=== PATIENT | male | born 1960 | race Caucasian/White ===

== ENCOUNTER 2023-03-03 12:14 | Inpatient (IN) | payer OTHER ==
[2023-03-03 12:47] VITALS: BMI 30.1
[2023-03-03] MEDS ORDERED: BISMUTH SUBSALICYLATE 262 MG/15 ML BTL PO PRN (14:03)
[2023-03-03] MEDS ORDERED: IBUPROFEN 600 MG TABLET (FP) PO PRN (14:03)
[2023-03-03] MEDS ORDERED: BENZOCAINE/MENTHOL (CHLORASEPTIC ) LOZENGE MM PRN (14:03)
[2023-03-03] MEDS ORDERED: hydrOXYzine PAMOATE 25 MG CAPSULE (FP) PO PRN (14:03)
[2023-03-03] MEDS ORDERED: NALOXONE HCL 0.4 MG/ML VIAL IM PRN (14:03)
[2023-03-03] MEDS ORDERED: BENZONATATE 200 MG CAPSULE PO PRN (14:03)
[2023-03-03] MEDS ORDERED: DICYCLOMINE HCL 10 MG CAPSULE PO PRN (14:03)
[2023-03-03] MEDS ORDERED: POLYETHYLENE GLYCOL (HEALTHYLAX) 3350 17 GM PACKET PO PRN (14:03)
[2023-03-03] MEDS ORDERED: IBUPROFEN 400 MG TABLET (FP) PO PRN (14:03)
[2023-03-03] MEDS ORDERED: MAGNESIUM HYDROX 2400MG/30ML ORAL SUSPENSION 30 ML CUP PO PRN (14:03)
[2023-03-03] MEDS ORDERED: guaiFENesin 600 MG TABLET.ER (FP) PO PRN (14:03)
[2023-03-03] MEDS ORDERED: ACETAMINOPHEN 325 MG TABLET (FP) PO PRN (14:03)
[2023-03-03] MEDS ORDERED: ONDANSETRON *ODT* 4 MG TABLET SL PRN (14:03)
[2023-03-03] MEDS ORDERED: LOPERAMIDE HCL 2 MG CAPSULE PO PRN (14:03)
[2023-03-03] MEDS ORDERED: NALOXONE HCL (KLOXXADO) 8 MG SPRAY NS PRN (14:03)
[2023-03-03] MEDS ORDERED: MAG HYDROX/AL HYDROX/SIMETH 30 ML UNIT-DOSE CUP PO PRN (14:03)
[2023-03-03] MEDS ORDERED: NICOTINE POLACRILEX 4 MG GUM BUC PRN (14:03)
[2023-03-03] MEDS: PRENATAL VITAMINS W/ FOLIC ACID TABLET (FP) PO SCH (14:32)
[2023-03-03] MEDS: THIAMINE HCL 100 MG TABLET (FP) PO SCH (22:28)
[2023-03-03] MEDS: MELATONIN 5 MG TABLETS PO SCH (22:29)
[2023-03-04] MEDS: PRENATAL VITAMINS W/ FOLIC ACID TABLET (FP) PO SCH (10:14)
[2023-03-04 12:17] LABS: HEMATOCRIT 35.9 % (35.4-49); HEMOGLOBIN 12.1 GM/dL (11.7-16.9); MCH 29.2 pg (25.7-33.7); MCHC 33.8 g/dl (32.0-35.9); MEAN CELL VOLUME 86.6 fl (80-96); MEAN PLT VOLUME 8.5 fl (7.5-11.1); PLATELET COUNT 172 10^3/uL (134-434); RBC 4.15 M/mm3 (4.00-5.60); RDW 15.1 % (11.9-15.9); WHITE BLOOD COUNT 3.3 K/mm3 (4.0-10.0)
[2023-03-04 12:27] LABS: POTASSIUM 3.9 mmol/L (3.5-5.1)
[2023-03-04 12:34] LABS: ALBUMIN 3.9 g/dl (3.4-5.0)
[2023-03-04 12:35] LABS: BLOOD UREA NITROGEN 25.1 mg/dL (7-18)
[2023-03-04 12:36] LABS: CREATININE 1.5 mg/dL (0.55-1.3)
[2023-03-04 12:37] LABS: CALCIUM 8.9 mg/dL (8.5-10.1)
[2023-03-04 12:38] LABS: BILIRUBIN,TOTAL 0.2 mg/dL (0.2-1); TOT PROT 7.7 g/dl (6.4-8.2)
[2023-03-04] MEDS: MELATONIN 5 MG TABLETS PO SCH (22:27)
[2023-03-04] MEDS: METHOCARBAMOL 500 MG TABLET PO PRN (22:27)
[2023-03-04] MEDS: THIAMINE HCL 100 MG TABLET (FP) PO SCH (22:27)
[2023-03-05 09:31] VITALS: BP 151/90; PULSE 65; RESP 16; TEMP 96.9
[2023-03-05] MEDS: PRENATAL VITAMINS W/ FOLIC ACID TABLET (FP) PO SCH (09:55)
[2023-03-05] MEDS: METHOCARBAMOL 500 MG TABLET PO PRN (09:55)
[2023-03-05] MEDS ORDERED: LISINOPRIL 10 MG TABLET PO SCH (10:00)
[2023-03-05] MEDS ORDERED: LACTULOSE 20 GM/30 ML UDC (FOR ORAL USE ONLY) PO SCH (10:00)
== END 2023-03-05 10:46 | disposition home or self-care (01) | DRG 774 ==
LOC: YASAS 12:14 → UNDOADMIN 14:36 → Y6N 14:36 → UNDODISIN 03-05 10:46
PROVIDERS: ADMIT Allergy & Immunology; ATTEND Surgery
PROC: HZ2ZZZZ Detoxification Services for Substance Abuse Treatment (ICD-10-PCS; principal; 2023-03-03)
DX: F10.230 Alcohol dependence with withdrawal, uncomplicated (principal); F14.20 Cocaine dependence, uncomplicated; F17.210 Nicotine dependence, cigarettes, uncomplicated; F41.8 Other specified anxiety disorders; I12.9 Hypertensive chronic kidney disease with stage 1 through stage 4 chronic kidney disease, or unspecified chronic kidney disease; N18.9 Chronic kidney disease, unspecified; R79.89 Other specified abnormal findings of blood chemistry; Z59.01 Sheltered homelessness
CPT/HCPCS: 36415; 80053; 80307; 82140; 85027; 86593; 86780; 87635

== ENCOUNTER 2023-09-28 11:08 | Inpatient (IN) | payer OTHER ==
[2023-09-28 12:16] VITALS: BMI 25.8
[2023-09-28] MEDS ORDERED: MAGNESIUM HYDROX 2400MG/30ML ORAL SUSPENSION 30 ML CUP PO PRN (13:27)
[2023-09-28] MEDS ORDERED: BENZOCAINE/MENTHOL (CHLORASEPTIC ) LOZENGE MM PRN (13:27)
[2023-09-28] MEDS ORDERED: BENZONATATE 200 MG CAPSULE PO PRN (13:27)
[2023-09-28] MEDS ORDERED: POLYETHYLENE GLYCOL (HEALTHYLAX) 3350 17 GM PACKET PO PRN (13:27)
[2023-09-28] MEDS ORDERED: MAG HYDROX/AL HYDROX/SIMETH 30 ML UNIT-DOSE CUP PO PRN (13:27)
[2023-09-28] MEDS ORDERED: IBUPROFEN 400 MG TABLET (FP) PO PRN (13:27)
[2023-09-28] MEDS ORDERED: DICYCLOMINE HCL 10 MG CAPSULE PO PRN (13:27)
[2023-09-28] MEDS ORDERED: ONDANSETRON *ODT* 4 MG TABLET SL PRN (13:27)
[2023-09-28] MEDS ORDERED: guaiFENesin 600 MG TABLET.ER (FP) PO PRN (13:27)
[2023-09-28] MEDS ORDERED: LOPERAMIDE HCL 2 MG CAPSULE PO PRN (13:27)
[2023-09-28] MEDS ORDERED: BISMUTH SUBSALICYLATE 262 MG/15 ML BTL PO PRN (13:27)
[2023-09-28] MEDS ORDERED: IBUPROFEN 600 MG TABLET (FP) PO PRN (13:27)
[2023-09-28] MEDS: LISINOPRIL 10 MG TABLET PO ONE (17:33)
[2023-09-28] MEDS: cloNIDine HCL 0.1 MG TABLET PO ONE (21:42)
[2023-09-28] MEDS: THIAMINE 100 MG TABLET PO SCH (21:43)
[2023-09-28] MEDS: MELATONIN 5 MG TABLETS PO SCH (21:43)
[2023-09-28] MEDS: TETRAHYDROZOLINE HCL EYE DROPS OU SCH (21:46)
[2023-09-29] MEDS: LISINOPRIL 10 MG TABLET PO SCH (09:53)
[2023-09-29] MEDS: HYDROCHLOROTHIAZIDE 12.5 MG CAPSULE (FP) PO SCH (09:53)
[2023-09-29] MEDS: BICTEGRAV/EMTRICIT/TENOFOV (BIKTARVY) 50-200-25 MG TABLET PO SCH (09:53)
[2023-09-29] MEDS: PRENATAL VITAMINS W/ FOLIC ACID TABLET (FP) PO SCH (09:53)
[2023-09-29] MEDS: SULFAMETHOXAZOLE/TRIMETHOPRIM 800MG/160MG D.S. TABLET PO SCH (09:53)
[2023-09-29 11:25] LABS: POTASSIUM 4.6 mmol/L (3.5-5.1)
[2023-09-29 11:28] LABS: CALCIUM 9.1 mg/dL (8.5-10.1)
[2023-09-29 11:29] LABS: ALBUMIN 3.6 g/dl (3.4-5.0); BLOOD UREA NITROGEN 24.6 mg/dL (7-18)
[2023-09-29 11:31] LABS: HEMATOCRIT 36.9 % (35.4-49); MCH 27.7 pg (25.7-33.7); MCHC 32.4 g/dl (32.0-35.9); MEAN CELL VOLUME 85.3 fl (80-96); MEAN PLT VOLUME 7.4 fl (7.5-11.1); PLATELET COUNT 151 10^3/uL (134-434); RBC 4.32 M/mm3 (4.00-5.60); WHITE BLOOD COUNT 3.9 K/mm3 (4.0-10.0)
[2023-09-29 11:32] LABS: CREATININE 1.2 mg/dL (0.55-1.3)
[2023-09-29 11:33] LABS: BILIRUBIN,TOTAL 0.5 mg/dL (0.2-1); TOT PROT 6.9 g/dl (6.4-8.2)
[2023-09-29] MEDS: cloNIDine HCL 0.1 MG TABLET PO PRN (17:30)
[2023-09-29] MEDS: ACETAMINOPHEN 325 MG TABLET (FP) PO PRN (19:36)
[2023-09-30] MEDS: diazePAM 5 MG TABLET PO SCH (11:46)
[2023-09-30] MEDS: hydrOXYzine PAMOATE 25 MG CAPSULE (FP) PO PRN (22:07)
[2023-09-30] MEDS: METHOCARBAMOL 500 MG TABLET PO PRN (22:07)
[2023-10-02] MEDS: diazePAM 5 MG TABLET PO SCH (06:09)
[2023-10-02] MEDS: ALBUTEROL SO4 HFA INHALER IH PRN (12:48)
[2023-10-02] MEDS: diazePAM 5 MG TABLET PO PRN (19:42)
[2023-10-02] MEDS: cloNIDine HCL 0.1 MG TABLET PO ONE (22:12)
[2023-10-03] MEDS: diazePAM 5 MG TABLET PO SCH (05:35)
[2023-10-03 12:30] VITALS: PULSE 84; RESP 16; TEMP 98.6
[2023-10-03 12:32] VITALS: BP 169/102
[2023-10-04] MEDS ORDERED: diazePAM 5 MG TABLET PO ONE (06:00)
== END 2023-10-03 12:56 | disposition home or self-care (01) | DRG 774 ==
LOC: YASAS 11:08 → Y3N 13:35
PROVIDERS: ADMIT Allergy & Immunology; ATTEND Surgery
PROC: HZ2ZZZZ Detoxification Services for Substance Abuse Treatment (ICD-10-PCS; principal; 2023-09-28)
DX: F10.230 Alcohol dependence with withdrawal, uncomplicated (principal); F14.20 Cocaine dependence, uncomplicated; F17.210 Nicotine dependence, cigarettes, uncomplicated; Z21 Asymptomatic human immunodeficiency virus [HIV] infection status; Z79.899 Other long term (current) drug therapy; I10 Essential (primary) hypertension; J45.909 Unspecified asthma, uncomplicated; R76.8 Other specified abnormal immunological findings in serum; Z86.19 Personal history of other infectious and parasitic diseases
CPT/HCPCS: 36415; 80053; 80305; 80307; 85027; 86593; 86780; 93005; 93010

== ENCOUNTER 2023-11-07 13:23 | Inpatient (IN) | payer OTHER ==
[2023-11-07] MEDS ORDERED: MAGNESIUM HYDROX 2400MG/30ML ORAL SUSPENSION 30 ML CUP PO PRN (14:51)
[2023-11-07] MEDS ORDERED: ACETAMINOPHEN 325 MG TABLET (FP) PO PRN (14:51)
[2023-11-07] MEDS ORDERED: BISMUTH SUBSALICYLATE 262 MG/15 ML BTL PO PRN (14:51)
[2023-11-07] MEDS ORDERED: BENZOCAINE/MENTHOL (CHLORASEPTIC ) LOZENGE MM PRN (14:51)
[2023-11-07] MEDS ORDERED: MAG HYDROX/AL HYDROX/SIMETH 30 ML UNIT-DOSE CUP PO PRN (14:51)
[2023-11-07] MEDS ORDERED: ONDANSETRON *ODT* 4 MG TABLET SL PRN (14:51)
[2023-11-07] MEDS ORDERED: IBUPROFEN 400 MG TABLET (FP) PO PRN (14:51)
[2023-11-07] MEDS ORDERED: IBUPROFEN 600 MG TABLET (FP) PO PRN (14:51)
[2023-11-07] MEDS ORDERED: NALOXONE (NARCAN) HCL 4 MG/0.1 ML SPRAY NS PRN (14:51)
[2023-11-07] MEDS ORDERED: DICYCLOMINE HCL 10 MG CAPSULE PO PRN (14:51)
[2023-11-07] MEDS ORDERED: LOPERAMIDE HCL 2 MG CAPSULE PO PRN (14:51)
[2023-11-07] MEDS ORDERED: BENZONATATE 200 MG CAPSULE PO PRN (14:51)
[2023-11-07] MEDS ORDERED: NALOXONE HCL 0.4 MG/ML VIAL IM PRN (14:51)
[2023-11-07] MEDS ORDERED: POLYETHYLENE GLYCOL (HEALTHYLAX) 3350 17 GM PACKET PO PRN (14:51)
[2023-11-07] MEDS ORDERED: ALBUTEROL SO4 HFA INHALER IH PRN (14:53)
[2023-11-07 14:55] VITALS: BMI 27.1
[2023-11-07] MEDS: BICTEGRAV/EMTRICIT/TENOFOV (BIKTARVY) 50-200-25 MG TABLET PO SCH (16:00)
[2023-11-07] MEDS: LISINOPRIL 10 MG TABLET PO SCH (16:30)
[2023-11-07] MEDS: HYDROCHLOROTHIAZIDE 12.5 MG CAPSULE (FP) PO SCH (16:30)
[2023-11-07] MEDS: TETRAHYDROZOLINE HCL EYE DROPS OU PRN (17:00)
[2023-11-07] MEDS ORDERED: LISINOPRIL 10 MG TABLET ONE (17:02)
[2023-11-07] MEDS ORDERED: HYDROCHLOROTHIAZIDE 12.5 MG CAPSULE (FP) ONE (17:02)
[2023-11-07] MEDS: guaiFENesin 600 MG TABLET.ER (FP) PO PRN (19:32)
[2023-11-07] MEDS: METHOCARBAMOL 500 MG TABLET PO PRN (22:21)
[2023-11-07] MEDS: MELATONIN 5 MG TABLETS PO SCH (22:21)
[2023-11-07] MEDS: THIAMINE 100 MG TABLET PO SCH (22:21)
[2023-11-07] MEDS: diazePAM 5 MG TABLET PO SCH (22:22)
[2023-11-08] MEDS: SULFAMETHOXAZOLE/TRIMETHOPRIM 800MG/160MG D.S. TABLET PO SCH (10:31)
[2023-11-08] MEDS: PRENATAL VITAMINS W/ FOLIC ACID TABLET (FP) PO SCH (10:31)
[2023-11-08 11:40] LABS: HEMATOCRIT 37.1 % (35.4-49); MCH 27.9 pg (25.7-33.7); MCHC 32.3 g/dl (32.0-35.9); MEAN CELL VOLUME 86.3 fl (80-96); MEAN PLT VOLUME 8.3 fl (7.5-11.1); PLATELET COUNT 144 10^3/uL (134-434); RBC 4.29 M/mm3 (4.00-5.60); RDW 15.9 % (11.9-15.9); WHITE BLOOD COUNT 3.1 K/mm3 (4.0-10.0)
[2023-11-08 11:42] LABS: POTASSIUM 3.8 mmol/L (3.5-5.1)
[2023-11-08 11:46] LABS: CALCIUM 8.9 mg/dL (8.5-10.1)
[2023-11-08 11:47] LABS: BLOOD UREA NITROGEN 21.4 mg/dL (7-18)
[2023-11-08 11:50] LABS: CREATININE 1.2 mg/dL (0.55-1.3)
[2023-11-08 11:51] LABS: TOT PROT 7.4 g/dl (6.4-8.2)
[2023-11-08 11:52] LABS: BILIRUBIN,TOTAL 0.3 mg/dL (0.2-1)
[2023-11-08] MEDS: hydrOXYzine PAMOATE 25 MG CAPSULE (FP) PO PRN (15:59)
[2023-11-08] MEDS: SUVOREXANT 10 MG TABLET PO PRN (22:15)
[2023-11-09] MEDS: diazePAM 5 MG TABLET PO SCH (06:08)
[2023-11-09] MEDS: diazePAM 5 MG TABLET PO PRN (10:27)
[2023-11-09] MEDS: LISINOPRIL 10 MG TABLET PO ONE (14:55)
[2023-11-09] MEDS: HYDROCHLOROTHIAZIDE 12.5 MG CAPSULE (FP) PO ONE (14:55)
[2023-11-10] MEDS: diazePAM 5 MG TABLET PO SCH (06:16)
[2023-11-10] MEDS: HYDROCHLOROTHIAZIDE 25 MG TABLET (FP) PO SCH (10:22)
[2023-11-10] MEDS: LISINOPRIL 20 MG TABLET PO SCH (10:22)
[2023-11-11] MEDS: diazePAM 5 MG TABLET PO ONE (05:34)
[2023-11-11 09:13] VITALS: BP 151/92; PULSE 73; RESP 16; TEMP 97.3
== END 2023-11-11 10:21 | disposition home or self-care (01) | DRG 774 ==
LOC: YASAS 13:23 → Y3N 16:41
PROVIDERS: ADMIT Allergy & Immunology; ATTEND Surgery
PROC: HZ2ZZZZ Detoxification Services for Substance Abuse Treatment (ICD-10-PCS; principal; 2023-11-07)
DX: F10.230 Alcohol dependence with withdrawal, uncomplicated (principal); F14.10 Cocaine abuse, uncomplicated; F19.282 Other psychoactive substance dependence with psychoactive substance-induced sleep disorder; Z21 Asymptomatic human immunodeficiency virus [HIV] infection status; I10 Essential (primary) hypertension; Z79.899 Other long term (current) drug therapy; Z87.891 Personal history of nicotine dependence
CPT/HCPCS: 36415; 80053; 80305; 80307; 85027; 86593; 86780; 93005; 93010

== ENCOUNTER 2023-11-28 09:34 | Inpatient (IN) | payer OTHER ==
[2023-11-28 10:37] VITALS: BMI 25.0
[2023-11-28] MEDS ORDERED: ONDANSETRON *ODT* 4 MG TABLET SL PRN (10:51)
[2023-11-28] MEDS ORDERED: BENZONATATE 200 MG CAPSULE PO PRN (10:51)
[2023-11-28] MEDS ORDERED: IBUPROFEN 400 MG TABLET (FP) PO PRN (10:51)
[2023-11-28] MEDS ORDERED: NALOXONE (NARCAN) HCL 4 MG/0.1 ML SPRAY NS PRN (10:51)
[2023-11-28] MEDS ORDERED: MAGNESIUM HYDROX 2400MG/30ML ORAL SUSPENSION 30 ML CUP PO PRN (10:51)
[2023-11-28] MEDS ORDERED: IBUPROFEN 600 MG TABLET (FP) PO PRN (10:51)
[2023-11-28] MEDS ORDERED: NALOXONE HCL 0.4 MG/ML VIAL IM PRN (10:51)
[2023-11-28] MEDS ORDERED: BISMUTH SUBSALICYLATE 262 MG/15 ML BTL PO PRN (10:51)
[2023-11-28] MEDS ORDERED: DICYCLOMINE HCL 10 MG CAPSULE PO PRN (10:51)
[2023-11-28] MEDS ORDERED: POLYETHYLENE GLYCOL (HEALTHYLAX) 3350 17 GM PACKET PO PRN (10:51)
[2023-11-28] MEDS ORDERED: ACETAMINOPHEN 325 MG TABLET (FP) PO PRN (10:51)
[2023-11-28] MEDS ORDERED: LOPERAMIDE HCL 2 MG CAPSULE PO PRN (10:51)
[2023-11-28] MEDS ORDERED: ALBUTEROL SO4 HFA INHALER IH PRN (10:53)
[2023-11-28] MEDS: BICTEGRAV/EMTRICIT/TENOFOV (BIKTARVY) 50-200-25 MG TABLET PO SCH (11:47)
[2023-11-28] MEDS ORDERED: PRENATAL VITAMINS W/ FOLIC ACID TABLET (FP) PO ONE (12:15)
[2023-11-28] MEDS: PRENATAL VITAMINS W/ FOLIC ACID TABLET (FP) PO SCH (12:17)
[2023-11-28] MEDS: PNEUMOC 20-VAL CONJ-DIP CRM/PF 0.5 ML SYRINGE IM ONE (13:35)
[2023-11-28] MEDS: TUBERCULIN PPD 5 TU/0.1ML SYRINGE (IN PATIENT USE ONLY) ID ONE (15:47)
[2023-11-28] MEDS: TUBERCULIN PPD 5 TU/0.1ML VIAL ID ONE (16:00)
[2023-11-28] MEDS: diazePAM 5 MG TABLET PO SCH (17:32)
[2023-11-28] MEDS: cloNIDine HCL 0.1 MG TABLET PO ONE (21:03)
[2023-11-28] MEDS: MELATONIN 5 MG TABLETS PO SCH (22:15)
[2023-11-28] MEDS: TETRAHYDROZOLINE HCL EYE DROPS OU SCH (22:15)
[2023-11-28] MEDS: THIAMINE 100 MG TABLET PO SCH (22:15)
[2023-11-28] MEDS: METHOCARBAMOL 500 MG TABLET PO PRN (22:16)
[2023-11-28] MEDS: hydrOXYzine PAMOATE 25 MG CAPSULE (FP) PO PRN (22:17)
[2023-11-29] MEDS ORDERED: LISINOPRIL 10 MG TABLET PO SCH (10:00)
[2023-11-29] MEDS: HYDROCHLOROTHIAZIDE 12.5 MG CAPSULE (FP) PO SCH (10:12)
[2023-11-29] MEDS: LISINOPRIL 10 MG TABLET PO SCH (10:12)
[2023-11-29] MEDS: APIXABAN 5 MG TABLET PO SCH (10:12)
[2023-11-29] MEDS: ATORVASTATIN CA 40 MG TABLET (FP) PO SCH (10:12)
[2023-11-29] MEDS: SULFAMETHOXAZOLE/TRIMETHOPRIM 800MG/160MG D.S. TABLET PO SCH (10:12)
[2023-11-29 12:08] LABS: POTASSIUM 3.9 mmol/L (3.5-5.1)
[2023-11-29 12:12] LABS: HEMATOCRIT 36.3 % (35.4-49); MCH 27.9 pg (25.7-33.7); MCHC 33.1 g/dl (32.0-35.9); MEAN CELL VOLUME 84.2 fl (80-96); MEAN PLT VOLUME 7.9 fl (7.5-11.1); PLATELET COUNT 116 10^3/uL (134-434); RBC 4.31 M/mm3 (4.00-5.60); RDW 15.1 % (11.9-15.9); WHITE BLOOD COUNT 3.4 K/mm3 (4.0-10.0)
[2023-11-29 12:26] LABS: ALBUMIN 3.3 g/dl (3.4-5.0)
[2023-11-29 12:27] LABS: CALCIUM 8.6 mg/dL (8.5-10.1)
[2023-11-29 12:29] LABS: CREATININE 0.9 mg/dL (0.55-1.3)
[2023-11-29 12:31] LABS: BILIRUBIN,TOTAL 0.6 mg/dL (0.2-1); TOT PROT 6.6 g/dl (6.4-8.2)
[2023-11-29] MEDS: cloNIDine HCL 0.1 MG TABLET PO PRN (17:08)
[2023-11-29] MEDS: guaiFENesin 600 MG TABLET.ER (FP) PO PRN (20:40)
[2023-11-29] MEDS: BENZOCAINE/MENTHOL (CHLORASEPTIC ) LOZENGE MM PRN (20:41)
[2023-11-30] MEDS: MAG HYDROX/AL HYDROX/SIMETH 30 ML UNIT-DOSE CUP PO PRN (03:01)
[2023-11-30] MEDS: diazePAM 5 MG TABLET PO PRN (03:04)
[2023-11-30] MEDS: diazePAM 5 MG TABLET PO SCH (05:33)
[2023-12-01] MEDS: diazePAM 5 MG TABLET PO SCH (06:03)
[2023-12-01 06:41] VITALS: RESP 16
[2023-12-01 09:02] VITALS: BP 168/88; PULSE 66; TEMP 97.8
[2023-12-02] MEDS ORDERED: diazePAM 5 MG TABLET PO ONE (06:00)
== END 2023-12-01 08:52 | disposition home or self-care (01) | DRG 774 ==
LOC: YASAS 09:34 → Y3N 11:45
PROVIDERS: ADMIT Allergy & Immunology; ATTEND Family Medicine Addiction Medicine
PROC: HZ2ZZZZ Detoxification Services for Substance Abuse Treatment (ICD-10-PCS; principal; 2023-11-28)
DX: F10.230 Alcohol dependence with withdrawal, uncomplicated (principal); F14.20 Cocaine dependence, uncomplicated; F19.282 Other psychoactive substance dependence with psychoactive substance-induced sleep disorder; Z21 Asymptomatic human immunodeficiency virus [HIV] infection status; E78.5 Hyperlipidemia, unspecified; I25.10 Atherosclerotic heart disease of native coronary artery without angina pectoris; I12.9 Hypertensive chronic kidney disease with stage 1 through stage 4 chronic kidney disease, or unspecified chronic kidney disease; N18.9 Chronic kidney disease, unspecified; Z79.01 Long term (current) use of anticoagulants; Z87.891 Personal history of nicotine dependence; Z59.00 Homelessness unspecified
CPT/HCPCS: 36415; 80053; 80305; 80307; 82140; 85027; 86593; 86780; 87811; 90677; 93005; 93010; G0009

== ENCOUNTER 2023-12-06 12:18 | Inpatient (IN) | payer OTHER ==
[2023-12-06 12:44] VITALS: BMI 28.3
[2023-12-06] MEDS ORDERED: MAG HYDROX/AL HYDROX/SIMETH 30 ML UNIT-DOSE CUP PO PRN (13:41)
[2023-12-06] MEDS ORDERED: IBUPROFEN 600 MG TABLET (FP) PO PRN (13:41)
[2023-12-06] MEDS ORDERED: IBUPROFEN 400 MG TABLET (FP) PO PRN (13:41)
[2023-12-06] MEDS ORDERED: guaiFENesin 600 MG TABLET.ER (FP) PO PRN (13:41)
[2023-12-06] MEDS ORDERED: NALOXONE HCL 0.4 MG/ML VIAL IM PRN (13:41)
[2023-12-06] MEDS ORDERED: POLYETHYLENE GLYCOL (HEALTHYLAX) 3350 17 GM PACKET PO PRN (13:41)
[2023-12-06] MEDS ORDERED: BISMUTH SUBSALICYLATE 524 MG/30 ML PO PRN (13:41)
[2023-12-06] MEDS ORDERED: ACETAMINOPHEN 325 MG TABLET (FP) PO PRN (13:41)
[2023-12-06] MEDS ORDERED: BENZONATATE 200 MG CAPSULE PO PRN (13:41)
[2023-12-06] MEDS ORDERED: BENZOCAINE/MENTHOL (CHLORASEPTIC ) LOZENGE MM PRN (13:41)
[2023-12-06] MEDS ORDERED: ONDANSETRON *ODT* 4 MG TABLET SL PRN (13:41)
[2023-12-06] MEDS ORDERED: LOPERAMIDE HCL 2 MG CAPSULE PO PRN (13:41)
[2023-12-06] MEDS ORDERED: diazePAM 5 MG TABLET PO PRN (13:41)
[2023-12-06] MEDS ORDERED: NALOXONE (NARCAN) HCL 4 MG/0.1 ML SPRAY NS PRN (13:41)
[2023-12-06] MEDS ORDERED: MAGNESIUM HYDROX 2400MG/30ML ORAL SUSPENSION 30 ML CUP PO PRN (13:41)
[2023-12-06] MEDS ORDERED: DICYCLOMINE HCL 10 MG CAPSULE PO PRN (13:41)
[2023-12-06] MEDS ORDERED: ALBUTEROL SO4 HFA INHALER IH PRN (13:43)
[2023-12-06] MEDS ORDERED: PRENATAL VITAMINS W/ FOLIC ACID TABLET (FP) PO ONE (15:12)
[2023-12-06] MEDS: PRENATAL VITAMINS W/ FOLIC ACID TABLET (FP) PO SCH (15:13)
[2023-12-06] MEDS: ACAMPROSATE CALCIUM 333 MG TABLET.DR PO SCH (15:58)
[2023-12-06] MEDS: diazePAM 5 MG TABLET PO SCH (17:06)
[2023-12-06] MEDS: LISINOPRIL 5 MG TABLET PO ONE (20:05)
[2023-12-06] MEDS: APIXABAN 5 MG TABLET PO SCH (22:02)
[2023-12-06] MEDS: MELATONIN 5 MG TABLETS PO SCH (22:02)
[2023-12-06] MEDS: THIAMINE 100 MG TABLET PO SCH (22:03)
[2023-12-07] MEDS: METHOCARBAMOL 500 MG TABLET PO PRN (06:08)
[2023-12-07] MEDS: NICOTINE 21 MG/24 HOURS TOPICAL PATCH TD SCH (10:06)
[2023-12-07] MEDS: SULFAMETHOXAZOLE/TRIMETHOPRIM 800MG/160MG D.S. TABLET PO SCH (10:09)
[2023-12-07] MEDS: HYDROCHLOROTHIAZIDE 12.5 MG CAPSULE (FP) PO SCH (10:09)
[2023-12-07] MEDS: LISINOPRIL 10 MG TABLET PO SCH (10:09)
[2023-12-07] MEDS: ATORVASTATIN CA 40 MG TABLET (FP) PO SCH ×2 (10:12→23:14)
[2023-12-07] MEDS: METHYL SALICYLATE/MENTHOL OINT 30 GM TUBE TP SCH (10:20)
[2023-12-07] MEDS: TETRAHYDROZOLINE HCL EYE DROPS OD PRN (11:06)
[2023-12-07 11:54] LABS: POTASSIUM 4.5 mmol/L (3.5-5.1)
[2023-12-07 11:56] LABS: HEMATOCRIT 33.8 % (35.4-49); HEMOGLOBIN 11.2 GM/dL (11.7-16.9); MCH 27.9 pg (25.7-33.7); MEAN CELL VOLUME 84.4 fl (80-96); MEAN PLT VOLUME 9.2 fl (7.5-11.1); PLATELET COUNT 132 10^3/uL (134-434); RBC 4.01 M/mm3 (4.00-5.60); RDW 14.5 % (11.9-15.9); WHITE BLOOD COUNT 3.3 K/mm3 (4.0-10.0)
[2023-12-07 11:57] LABS: CALCIUM 8.2 mg/dL (8.5-10.1)
[2023-12-07 11:58] LABS: ALBUMIN 3.4 g/dl (3.4-5.0); BLOOD UREA NITROGEN 21.4 mg/dL (7-18)
[2023-12-07 12:01] LABS: CREATININE 1.1 mg/dL (0.55-1.3)
[2023-12-07 12:02] LABS: TOT PROT 6.5 g/dl (6.4-8.2)
[2023-12-07 12:03] LABS: BILIRUBIN,TOTAL 0.4 mg/dL (0.2-1)
[2023-12-07] MEDS: hydrOXYzine PAMOATE 25 MG CAPSULE (FP) PO PRN (15:29)
[2023-12-08] MEDS: diazePAM 5 MG TABLET PO SCH (05:54)
[2023-12-09] MEDS: diazePAM 5 MG TABLET PO SCH (05:56)
[2023-12-09] MEDS: cloNIDine HCL 0.1 MG TABLET PO ONE (21:14)
[2023-12-10] MEDS: diazePAM 5 MG TABLET PO ONE (06:32)
[2023-12-10] MEDS: LACTULOSE 20 GM/30 ML UDC (FOR ORAL USE ONLY) PO SCH (17:13)
[2023-12-11 12:30] VITALS: BP 158/91; PULSE 70; RESP 17; TEMP 97.1
== END 2023-12-11 12:45 | disposition other institution (70) | DRG 774 ==
LOC: YASAS 12:18 → Y6N 14:23
PROVIDERS: ADMIT Allergy & Immunology; ATTEND Surgery
PROC: HZ2ZZZZ Detoxification Services for Substance Abuse Treatment (ICD-10-PCS; principal; 2023-12-06)
DX: F10.230 Alcohol dependence with withdrawal, uncomplicated (principal); F14.20 Cocaine dependence, uncomplicated; F12.20 Cannabis dependence, uncomplicated; F17.210 Nicotine dependence, cigarettes, uncomplicated; F41.9 Anxiety disorder, unspecified; F32.A Depression, unspecified; Z21 Asymptomatic human immunodeficiency virus [HIV] infection status; E78.5 Hyperlipidemia, unspecified; I10 Essential (primary) hypertension; J45.909 Unspecified asthma, uncomplicated; Z86.718 Personal history of other venous thrombosis and embolism; Z79.01 Long term (current) use of anticoagulants; Z59.02 Unsheltered homelessness; Z79.899 Other long term (current) drug therapy
CPT/HCPCS: 36415; 80053; 80305; 80307; 82140; 85027; 86593; 86780; 87811; 93005; 93010

== ENCOUNTER 2023-12-11 12:48 | Inpatient (IN) | payer OTHER ==
[~2023-12-11 12:48] MED LIST: ACETAMINOPHEN 325 MG TABLET (FP) PO PRN; BENZOCAINE/MENTHOL (CHLORASEPTIC ) LOZENGE MM PRN; BENZONATATE 200 MG CAPSULE PO PRN; IBUPROFEN 400 MG TABLET (FP) PO PRN; IBUPROFEN 600 MG TABLET (FP) PO PRN; LOPERAMIDE HCL 2 MG CAPSULE PO PRN; MAGNESIUM HYDROX 2400MG/30ML ORAL SUSPENSION 30 ML CUP PO PRN; NICOTINE 7 MG/24 HOURS TOPICAL PATCH TD PRN; NICOTINE POLACRILEX 2 MG GUM BUC PRN; NICOTINE POLACRILEX 2 MG LOZENGE BC PRN; POLYETHYLENE GLYCOL (HEALTHYLAX) 3350 17 GM PACKET PO PRN; guaiFENesin 600 MG TABLET.ER (FP) PO PRN
[2023-12-11] MEDS ORDERED: NICOTINE 7 MG/24 HOURS TOPICAL PATCH TD PRN (12:50)
[2023-12-11] MEDS: LACTULOSE 20 GM/30 ML UDC (FOR ORAL USE ONLY) PO SCH (14:39)
[2023-12-11] MEDS: BICTEGRAV/EMTRICIT/TENOFOV (BIKTARVY) 50-200-25 MG TABLET PO SCH (14:40)
[2023-12-11] MEDS: THIAMINE 100 MG TABLET PO SCH (21:49)
[2023-12-11] MEDS: APIXABAN 5 MG TABLET PO SCH (21:49)
[2023-12-11] MEDS: MELATONIN 5 MG TABLETS PO SCH (21:49)
[2023-12-11] MEDS: ATORVASTATIN CA 40 MG TABLET (FP) PO SCH (21:49)
[2023-12-11] MEDS: hydrOXYzine PAMOATE 25 MG CAPSULE (FP) PO PRN (21:52)
[2023-12-12] MEDS: PRENATAL VITAMINS W/ FOLIC ACID TABLET (FP) PO SCH (09:49)
[2023-12-12] MEDS: LISINOPRIL 10 MG TABLET PO SCH (09:49)
[2023-12-12] MEDS: SULFAMETHOXAZOLE/TRIMETHOPRIM 800MG/160MG D.S. TABLET PO SCH (09:49)
[2023-12-12] MEDS: HYDROCHLOROTHIAZIDE 12.5 MG CAPSULE (FP) PO SCH (09:49)
[2023-12-12] MEDS ORDERED: LISINOPRIL 10 MG TABLET PO SCH (10:18)
[2023-12-12] MEDS: ALBUTEROL SO4 HFA INHALER IH PRN (10:22)
[2023-12-12] MEDS: LISINOPRIL 10 MG TABLET PO ONE (10:43)
[2023-12-12] MEDS: BACLOFEN 10 MG TABLET (FP) PO SCH (10:43)
[2023-12-12] MEDS: SUVOREXANT 10 MG TABLET PO PRN (21:17)
[2023-12-13] MEDS: LISINOPRIL 20 MG TABLET PO SCH (09:43)
[2023-12-13 11:49] LABS: INR 1.08 (0.83-1.09); PROTHROMBIN TIME (PATIENT) 12.2 SEC (9.7-13.0)
[2023-12-14] MEDS: METHYL SALICYLATE/MENTHOL 30 GM TUBE TP PRN (12:37)
[2023-12-15] MEDS: TETRAHYDROZOLINE HCL EYE DROPS OU PRN (21:45)
[2023-12-16] MEDS: HYDROCHLOROTHIAZIDE 25 MG TABLET (FP) PO SCH (10:18)
[2023-12-16] MEDS: SUVOREXANT 10 MG TABLET PO PRN (21:32)
[2023-12-16] MEDS ORDERED: SUVOREXANT 10 MG TABLET PO PRN (22:00)
[2023-12-18 11:52] LABS: BASO % 0.4 % (0-2.0); EOS % 1.4 % (0-4.5); HEMATOCRIT 35.4 % (35.4-49); HEMOGLOBIN 11.6 GM/dL (11.7-16.9); LYMPH % 33.1 % (8-40); MCH 27.9 pg (25.7-33.7); MCHC 32.7 g/dl (32.0-35.9); MEAN CELL VOLUME 85.3 fl (80-96); MEAN PLT VOLUME 8.2 fl (7.5-11.1); MONO % 12.3 % (3.8-10.2); NEUT % 52.8 % (42.8-82.8); PLATELET COUNT 203 10^3/uL (134-434); RBC 4.15 M/mm3 (4.00-5.60); RDW 14.2 % (11.9-15.9); WHITE BLOOD COUNT 5.4 K/mm3 (4.0-10.0)
[2023-12-18 12:09] LABS: POTASSIUM 4.9 mmol/L (3.5-5.1)
[2023-12-18 12:15] LABS: BLOOD UREA NITROGEN 24.6 mg/dL (7-18); CALCIUM 8.9 mg/dL (8.5-10.1)
[2023-12-18 12:19] LABS: BILIRUBIN,TOTAL 0.3 mg/dL (0.2-1); CREATININE 1.4 mg/dL (0.55-1.3)
[2023-12-18 12:22] LABS: TOT PROT 7.5 g/dl (6.4-8.2)
[2023-12-18] MEDS: SUVOREXANT 10 MG TABLET PO PRN (21:10)
[2023-12-19] MEDS: SUVOREXANT 10 MG TABLET PO PRN (21:39)
[2023-12-19] MEDS ORDERED: SUVOREXANT 10 MG TABLET PO PRN (22:00)
[2023-12-24] MEDS: SUVOREXANT 10 MG TABLET PO PRN (21:33)
[2023-12-25] MEDS: traZODone HCL 50 MG TABLET (FP) PO SCH (21:02)
[2023-12-27] MEDS: amLODIPine BESYLATE 2.5 MG TABLET (FP) PO SCH (14:12)
[2023-12-27] MEDS: traZODone HCL 100 MG TABLET (FP) PO SCH (21:03)
[2023-12-30] MEDS: MAG HYDROX/AL HYDROX/SIMETH 30 ML UNIT-DOSE CUP PO PRN (07:31)
[2024-01-01 06:38] VITALS: TEMP 98.2
[2024-01-01 08:51] VITALS: BP 145/79; PULSE 97; RESP 16
== END 2024-01-01 10:03 | disposition home or self-care (01) | DRG 772 ==
LOC: YASAS 12:48 → Y3W 12:50
PROVIDERS: ADMIT Allergy & Immunology; ATTEND Psychiatry & Neurology Pain Medicine
PROC: HZ42ZZZ Group Counseling for Substance Abuse Treatment, Cognitive-Behavioral (ICD-10-PCS; principal; 2023-12-08)
DX: F10.20 Alcohol dependence, uncomplicated (principal); F10.282 Alcohol dependence with alcohol-induced sleep disorder; F10.24 Alcohol dependence with alcohol-induced mood disorder; F12.20 Cannabis dependence, uncomplicated; F17.210 Nicotine dependence, cigarettes, uncomplicated; F19.982 Other psychoactive substance use, unspecified with psychoactive substance-induced sleep disorder; F32.3 Major depressive disorder, single episode, severe with psychotic features; I10 Essential (primary) hypertension; J45.909 Unspecified asthma, uncomplicated; E72.20 Disorder of urea cycle metabolism, unspecified; N18.9 Chronic kidney disease, unspecified; Z21 Asymptomatic human immunodeficiency virus [HIV] infection status; E78.5 Hyperlipidemia, unspecified; R76.8 Other specified abnormal immunological findings in serum; Z86.19 Personal history of other infectious and parasitic diseases; Z56.0 Unemployment, unspecified; Z59.02 Unsheltered homelessness
CPT/HCPCS: 36415; 80053; 82140; 82652; 82962; 83735; 85025; 85610; J0475

== ENCOUNTER 2024-01-26 13:53 | Inpatient (IN) | payer OTHER ==
[2024-01-26 14:11] VITALS: BMI 29.0
[2024-01-26] MEDS ORDERED: NALOXONE (NARCAN) HCL 4 MG/0.1 ML SPRAY NS PRN (15:12)
[2024-01-26] MEDS ORDERED: IBUPROFEN 400 MG TABLET (FP) PO PRN (15:12)
[2024-01-26] MEDS ORDERED: chlordiazePOXIDE HCL 25 MG CAPSULE PO PRN (15:12)
[2024-01-26] MEDS ORDERED: guaiFENesin 600 MG TABLET.ER (FP) PO PRN (15:12)
[2024-01-26] MEDS ORDERED: ACETAMINOPHEN 325 MG TABLET (FP) PO PRN (15:12)
[2024-01-26] MEDS ORDERED: DICYCLOMINE HCL 10 MG CAPSULE PO PRN (15:12)
[2024-01-26] MEDS ORDERED: hydrOXYzine PAMOATE 25 MG CAPSULE (FP) PO PRN (15:12)
[2024-01-26] MEDS ORDERED: METHOCARBAMOL 500 MG TABLET PO PRN (15:12)
[2024-01-26] MEDS ORDERED: MAGNESIUM HYDROX 2400MG/30ML ORAL SUSPENSION 30 ML CUP PO PRN (15:12)
[2024-01-26] MEDS ORDERED: MAG HYDROX/AL HYDROX/SIMETH 30 ML UNIT-DOSE CUP PO PRN (15:12)
[2024-01-26] MEDS ORDERED: IBUPROFEN 600 MG TABLET (FP) PO PRN (15:12)
[2024-01-26] MEDS ORDERED: BENZONATATE 200 MG CAPSULE PO PRN (15:12)
[2024-01-26] MEDS ORDERED: ONDANSETRON *ODT* 4 MG TABLET SL PRN (15:12)
[2024-01-26] MEDS ORDERED: BENZOCAINE/MENTHOL (CHLORASEPTIC ) LOZENGE MM PRN (15:12)
[2024-01-26] MEDS ORDERED: NALOXONE HCL 0.4 MG/ML VIAL IM PRN (15:12)
[2024-01-26] MEDS ORDERED: POLYETHYLENE GLYCOL (HEALTHYLAX) 3350 17 GM PACKET PO PRN (15:12)
[2024-01-26] MEDS ORDERED: BISMUTH SUBSALICYLATE 524 MG/30 ML PO PRN (15:12)
[2024-01-26] MEDS ORDERED: LOPERAMIDE HCL 2 MG CAPSULE PO PRN (15:12)
[2024-01-26] MEDS ORDERED: ALBUTEROL SO4 HFA INHALER IH PRN (15:14)
[2024-01-26] MEDS: chlordiazePOXIDE HCL 25 MG CAPSULE PO SCH (17:53)
[2024-01-26] MEDS: PRENATAL VITAMINS W/ FOLIC ACID TABLET (FP) PO SCH (17:56)
[2024-01-26] MEDS: THIAMINE 100 MG TABLET PO SCH (22:23)
[2024-01-26] MEDS: APIXABAN 5 MG TABLET PO SCH (22:23)
[2024-01-26] MEDS: ATORVASTATIN CA 40 MG TABLET (FP) PO SCH (22:23)
[2024-01-26] MEDS: ACAMPROSATE CALCIUM 333 MG TABLET.DR PO SCH (22:23)
[2024-01-26] MEDS: MELATONIN 5 MG TABLETS PO SCH (22:24)
[2024-01-27] MEDS: BICTEGRAV/EMTRICIT/TENOFOV (BIKTARVY) 50-200-25 MG TABLET PO SCH (07:57)
[2024-01-27] MEDS: HYDROCHLOROTHIAZIDE 25 MG TABLET (FP) PO SCH (10:20)
[2024-01-27] MEDS: SULFAMETHOXAZOLE/TRIMETHOPRIM 800MG/160MG D.S. TABLET PO SCH (10:20)
[2024-01-27] MEDS: LISINOPRIL 20 MG TABLET PO SCH (10:20)
[2024-01-27] MEDS: amLODIPine BESYLATE 2.5 MG TABLET (FP) PO SCH (10:21)
[2024-01-27 11:27] LABS: HEMATOCRIT 33.3 % (35.4-49); HEMOGLOBIN 10.7 GM/dL (11.7-16.9); MCH 27.7 pg (25.7-33.7); MCHC 32.2 g/dl (32.0-35.9); MEAN CELL VOLUME 86.2 fl (80-96); MEAN PLT VOLUME 7.5 fl (7.5-11.1); PLATELET COUNT 137 10^3/uL (134-434); RBC 3.86 M/mm3 (4.00-5.60); RDW 15.5 % (11.9-15.9)
[2024-01-27 11:39] LABS: CHLORIDE 108 mmol/L (98-107); POTASSIUM 4.6 mmol/L (3.5-5.1); SODIUM 141 mmol/L (136-145)
[2024-01-27 11:41] LABS: CALCIUM 8.8 mg/dL (8.5-10.1)
[2024-01-27 11:42] LABS: ALBUMIN 3.5 g/dl (3.4-5.0); ANION GAP 7 mmol/L (4-13); BLOOD UREA NITROGEN 24.6 mg/dL (7-18); CO2 26 mmol/L (21-32); GLUCOSE,RANDOM 132 mg/dL (74-106)
[2024-01-27 11:45] LABS: CREATININE 1.2 mg/dL (0.55-1.3); SGOT/AST 27 U/L (15-37); SGPT/ALT 24 U/L (13-61)
[2024-01-27 11:46] LABS: BILIRUBIN,TOTAL 0.4 mg/dL (0.2-1); TOT PROT 6.4 g/dl (6.4-8.2)
[2024-01-27 11:49] LABS: ALK PHOS 104 U/L (45-117)
[2024-01-28] MEDS: chlordiazePOXIDE HCL 25 MG CAPSULE PO SCH (05:53)
[2024-01-28 09:32] VITALS: BP 152/90; PULSE 65; RESP 17; TEMP 97.3
[2024-01-29] MEDS ORDERED: chlordiazePOXIDE HCL 10 MG CAPSULE PO PRN
[2024-01-29] MEDS ORDERED: chlordiazePOXIDE HCL 10 MG CAPSULE PO SCH (05:00)
[2024-01-30] MEDS ORDERED: chlordiazePOXIDE HCL 10 MG CAPSULE PO SCH (05:00)
[2024-01-31] MEDS ORDERED: chlordiazePOXIDE HCL 10 MG CAPSULE PO ONE (05:00)
== END 2024-01-28 11:20 | disposition left against medical advice (07) | DRG 770 ==
LOC: YASAS 13:53 → Y6N 16:50
PROVIDERS: ADMIT Allergy & Immunology; ATTEND Surgery
PROC: HZ2ZZZZ Detoxification Services for Substance Abuse Treatment (ICD-10-PCS; principal; 2024-01-26)
DX: F10.230 Alcohol dependence with withdrawal, uncomplicated (principal); F14.20 Cocaine dependence, uncomplicated; F17.210 Nicotine dependence, cigarettes, uncomplicated; F33.3 Major depressive disorder, recurrent, severe with psychotic symptoms; F12.20 Cannabis dependence, uncomplicated; F19.24 Other psychoactive substance dependence with psychoactive substance-induced mood disorder; Z21 Asymptomatic human immunodeficiency virus [HIV] infection status; E78.5 Hyperlipidemia, unspecified; I12.9 Hypertensive chronic kidney disease with stage 1 through stage 4 chronic kidney disease, or unspecified chronic kidney disease; N18.9 Chronic kidney disease, unspecified; J45.909 Unspecified asthma, uncomplicated; Z59.00 Homelessness unspecified
CPT/HCPCS: 36415; 80053; 80305; 80307; 85027; 86593; 86780; 93005; 93010

== ENCOUNTER 2024-02-19 11:32 | Inpatient (IN) | payer OTHER ==
[2024-02-19 12:11] VITALS: BMI 29.0
[2024-02-19] MEDS ORDERED: guaiFENesin 600 MG TABLET.ER (FP) PO PRN (13:50)
[2024-02-19] MEDS ORDERED: POLYETHYLENE GLYCOL (HEALTHYLAX) 3350 17 GM PACKET PO PRN (13:50)
[2024-02-19] MEDS ORDERED: MAGNESIUM HYDROX 2400MG/30ML ORAL SUSPENSION 30 ML CUP PO PRN (13:50)
[2024-02-19] MEDS ORDERED: ONDANSETRON *ODT* 4 MG TABLET SL PRN (13:50)
[2024-02-19] MEDS ORDERED: DICYCLOMINE HCL 10 MG CAPSULE PO PRN (13:50)
[2024-02-19] MEDS ORDERED: LOPERAMIDE HCL 2 MG CAPSULE PO PRN (13:50)
[2024-02-19] MEDS ORDERED: BISMUTH SUBSALICYLATE 524 MG/30 ML PO PRN (13:50)
[2024-02-19] MEDS ORDERED: IBUPROFEN 600 MG TABLET (FP) PO PRN (13:50)
[2024-02-19] MEDS ORDERED: NALOXONE (NYS OPIOID OVERDOSE PROGRAM) 4 MG/0.1 ML SPRAY NS PRN (13:50)
[2024-02-19] MEDS ORDERED: IBUPROFEN 400 MG TABLET (FP) PO PRN (13:50)
[2024-02-19] MEDS ORDERED: BENZONATATE 200 MG CAPSULE PO PRN (13:50)
[2024-02-19] MEDS ORDERED: NALOXONE (NARCAN) HCL 4 MG/0.1 ML SPRAY NS PRN (13:50)
[2024-02-19] MEDS ORDERED: MAG HYDROX/AL HYDROX/SIMETH 30 ML UNIT-DOSE CUP PO PRN (13:50)
[2024-02-19] MEDS ORDERED: BENZOCAINE/MENTHOL (CHLORASEPTIC ) LOZENGE MM PRN (13:50)
[2024-02-19] MEDS ORDERED: ALBUTEROL SO4 HFA INHALER IH PRN (13:53)
[2024-02-19] MEDS: HYDROCHLOROTHIAZIDE 25 MG TABLET (FP) PO SCH (15:21)
[2024-02-19] MEDS: amLODIPine BESYLATE 2.5 MG TABLET (FP) PO SCH (15:21)
[2024-02-19] MEDS ORDERED: ACETAMINOPHEN 325 MG TABLET (FP) ONE (15:31)
[2024-02-19] MEDS: ACETAMINOPHEN 325 MG TABLET (FP) PO PRN (15:33)
[2024-02-19] MEDS: diazePAM 5 MG TABLET PO SCH (17:33)
[2024-02-19] MEDS: METOPROLOL TARTRATE 25 MG TABLET (FP) PO ONE (18:45)
[2024-02-19] MEDS: amLODIPine BESYLATE 5 MG TABLET (FP) PO ONE (18:45)
[2024-02-19] MEDS: ATORVASTATIN CA 40 MG TABLET (FP) PO SCH (21:07)
[2024-02-19] MEDS: METHYL SALICYLATE/MENTHOL 30 GM TUBE TP SCH (22:21)
[2024-02-19] MEDS: MELATONIN 5 MG TABLETS PO SCH (22:23)
[2024-02-19] MEDS: APIXABAN 5 MG TABLET PO SCH (22:23)
[2024-02-19] MEDS: THIAMINE 100 MG TABLET PO SCH (22:23)
[2024-02-19] MEDS: BACLOFEN 10 MG TABLET (FP) PO SCH (22:23)
[2024-02-19] MEDS: ACAMPROSATE CALCIUM 333 MG TABLET.DR PO SCH (22:23)
[2024-02-20] MEDS: BICTEGRAV/EMTRICIT/TENOFOV (BIKTARVY) 50-200-25 MG TABLET PO SCH (07:24)
[2024-02-20] MEDS: PRENATAL VITAMINS W/ FOLIC ACID TABLET (FP) PO SCH (09:44)
[2024-02-20] MEDS: SULFAMETHOXAZOLE/TRIMETHOPRIM 800MG/160MG D.S. TABLET PO SCH (09:44)
[2024-02-20] MEDS: LISINOPRIL 20 MG TABLET PO SCH (09:44)
[2024-02-20] MEDS: METHOCARBAMOL 500 MG TABLET PO PRN (11:10)
[2024-02-20] MEDS: hydrOXYzine PAMOATE 25 MG CAPSULE (FP) PO PRN (11:10)
[2024-02-20] MEDS: diazePAM 5 MG TABLET PO PRN (12:24)
[2024-02-20 14:41] LABS: POTASSIUM 4.3 mmol/L (3.5-5.1)
[2024-02-20 14:42] LABS: HEMATOCRIT 39.7 % (35.4-49); HEMOGLOBIN 12.9 GM/dL (11.7-16.9); MCH 27.8 pg (25.7-33.7); MCHC 32.5 g/dl (32.0-35.9); MEAN CELL VOLUME 85.6 fl (80-96); MEAN PLT VOLUME 7.6 fl (7.5-11.1); PLATELET COUNT 152 10^3/uL (134-434); RBC 4.64 M/mm3 (4.00-5.60); RDW 16.2 % (11.9-15.9)
[2024-02-20 14:48] LABS: CALCIUM 9.1 mg/dL (8.5-10.1)
[2024-02-20 14:49] LABS: ALBUMIN 3.8 g/dl (3.4-5.0); BLOOD UREA NITROGEN 19.6 mg/dL (7-18)
[2024-02-20 14:52] LABS: CREATININE 1.1 mg/dL (0.55-1.3)
[2024-02-20 14:53] LABS: BILIRUBIN,TOTAL 0.5 mg/dL (0.2-1); TOT PROT 7.2 g/dl (6.4-8.2)
[2024-02-20] MEDS: traZODone HCL 50 MG TABLET (FP) PO SCH (22:25)
[2024-02-21] MEDS: diazePAM 5 MG TABLET PO SCH (05:29)
[2024-02-21] MEDS: amLODIPine BESYLATE 5 MG TABLET (FP) PO ONE (17:33)
[2024-02-22] MEDS: diazePAM 5 MG TABLET PO SCH (05:44)
[2024-02-22 20:39] VITALS: RESP 18
[2024-02-23] MEDS: diazePAM 5 MG TABLET PO ONE (05:34)
[2024-02-23 09:52] VITALS: BP 146/63; PULSE 86; TEMP 97.7
== END 2024-02-23 09:36 | disposition home or self-care (01) | DRG 774 ==
LOC: YASAS 11:32 → Y3N 15:10
PROVIDERS: ADMIT Allergy & Immunology; ATTEND Surgery
PROC: HZ2ZZZZ Detoxification Services for Substance Abuse Treatment (ICD-10-PCS; principal; 2024-02-19)
DX: F10.230 Alcohol dependence with withdrawal, uncomplicated (principal); F14.20 Cocaine dependence, uncomplicated; F10.282 Alcohol dependence with alcohol-induced sleep disorder; F19.24 Other psychoactive substance dependence with psychoactive substance-induced mood disorder; F25.9 Schizoaffective disorder, unspecified; F41.9 Anxiety disorder, unspecified; Z21 Asymptomatic human immunodeficiency virus [HIV] infection status; I10 Essential (primary) hypertension; E78.5 Hyperlipidemia, unspecified; J45.30 Mild persistent asthma, uncomplicated; Z86.718 Personal history of other venous thrombosis and embolism; Z79.01 Long term (current) use of anticoagulants; Z87.891 Personal history of nicotine dependence; Z79.899 Other long term (current) drug therapy; Z59.02 Unsheltered homelessness; S91.112A Laceration without foreign body of left great toe without damage to nail, initial encounter; X58.XXXA Exposure to other specified factors, initial encounter; Y93.9 Activity, unspecified; Y92.9 Unspecified place or not applicable
CPT/HCPCS: 36415; 80053; 80305; 80307; 85027; 86593; 86780; 93005; 93010; J0475

== ENCOUNTER 2024-03-06 13:29 | Inpatient (IN) | payer OTHER ==
[2024-03-06 14:17] VITALS: BMI 28.7
[2024-03-06] MEDS ORDERED: MAGNESIUM HYDROX 2400MG/30ML ORAL SUSPENSION 30 ML CUP PO PRN (15:26)
[2024-03-06] MEDS ORDERED: POLYETHYLENE GLYCOL (HEALTHYLAX) 3350 17 GM PACKET PO PRN (15:26)
[2024-03-06] MEDS ORDERED: ONDANSETRON *ODT* 4 MG TABLET SL PRN (15:26)
[2024-03-06] MEDS ORDERED: BENZOCAINE/MENTHOL (CHLORASEPTIC ) LOZENGE MM PRN (15:26)
[2024-03-06] MEDS ORDERED: MAG HYDROX/AL HYDROX/SIMETH 30 ML UNIT-DOSE CUP PO PRN (15:26)
[2024-03-06] MEDS ORDERED: NALOXONE (NYS OPIOID OVERDOSE PROGRAM) 4 MG/0.1 ML SPRAY NS PRN (15:26)
[2024-03-06] MEDS ORDERED: BENZONATATE 200 MG CAPSULE PO PRN (15:26)
[2024-03-06] MEDS ORDERED: hydrOXYzine PAMOATE 25 MG CAPSULE (FP) PO PRN (15:26)
[2024-03-06] MEDS ORDERED: NALOXONE (NARCAN) HCL 4 MG/0.1 ML SPRAY NS PRN (15:26)
[2024-03-06] MEDS ORDERED: BISMUTH SUBSALICYLATE 524 MG/30 ML PO PRN (15:26)
[2024-03-06] MEDS ORDERED: LOPERAMIDE HCL 2 MG CAPSULE PO PRN (15:26)
[2024-03-06] MEDS ORDERED: IBUPROFEN 400 MG TABLET (FP) PO PRN (15:26)
[2024-03-06] MEDS ORDERED: guaiFENesin 600 MG TABLET.ER (FP) PO PRN (15:26)
[2024-03-06] MEDS ORDERED: DICYCLOMINE HCL 10 MG CAPSULE PO PRN (15:26)
[2024-03-06] MEDS ORDERED: chlordiazePOXIDE HCL 25 MG CAPSULE ONE (17:05)
[2024-03-06] MEDS: chlordiazePOXIDE HCL 25 MG CAPSULE PO SCH ×2 (18:18→18:23)
[2024-03-06] MEDS: PRENATAL VITAMINS W/ FOLIC ACID TABLET (FP) PO SCH (18:21)
[2024-03-06] MEDS: MELATONIN 5 MG TABLETS PO SCH (22:25)
[2024-03-06] MEDS: THIAMINE 100 MG TABLET PO SCH (22:26)
[2024-03-06] MEDS: METHOCARBAMOL 500 MG TABLET PO PRN (22:26)
[2024-03-06] MEDS: ACETAMINOPHEN 325 MG TABLET (FP) PO PRN (22:27)
[2024-03-07 12:21] LABS: HEMATOCRIT 36.3 % (35.4-49); HEMOGLOBIN 11.8 GM/dL (11.7-16.9); MCH 27.5 pg (25.7-33.7); MCHC 32.4 g/dl (32.0-35.9); MEAN CELL VOLUME 84.9 fl (80-96); MEAN PLT VOLUME 7.7 fl (7.5-11.1); PLATELET COUNT 130 10^3/uL (134-434); RBC 4.27 M/mm3 (4.00-5.60); RDW 15.7 % (11.9-15.9); WHITE BLOOD COUNT 2.5 K/mm3 (4.0-10.0)
[2024-03-07 12:32] LABS: CHLORIDE 109 mmol/L (98-107); POTASSIUM 4.4 mmol/L (3.5-5.1); SODIUM 138 mmol/L (136-145)
[2024-03-07 12:36] LABS: ALBUMIN 3.2 g/dl (3.4-5.0); BLOOD UREA NITROGEN 22.1 mg/dL (7-18); GLUCOSE,RANDOM 133 mg/dL (74-106)
[2024-03-07 12:37] LABS: CALCIUM 8.4 mg/dL (8.5-10.1)
[2024-03-07 12:38] LABS: ANION GAP 3 mmol/L (4-13); CO2 27 mmol/L (21-32)
[2024-03-07 12:39] LABS: CREATININE 1.1 mg/dL (0.55-1.3); SGOT/AST 41 U/L (15-37); SGPT/ALT 34 U/L (13-61)
[2024-03-07 12:42] LABS: ALK PHOS 139 U/L (45-117)
[2024-03-07 12:43] LABS: BILIRUBIN,TOTAL 0.2 mg/dL (0.2-1)
[2024-03-07] MEDS: cloNIDine HCL 0.1 MG TABLET PO ONE (15:49)
[2024-03-07] MEDS: traZODone HCL 50 MG TABLET (FP) PO SCH (22:52)
[2024-03-08] MEDS: chlordiazePOXIDE HCL 25 MG CAPSULE PO SCH (05:50)
[2024-03-08] MEDS: IBUPROFEN 600 MG TABLET (FP) PO PRN (06:23)
[2024-03-08] MEDS: cloNIDine HCL 0.1 MG TABLET PO ONE (12:58)
[2024-03-08 16:32] VITALS: TEMP 97.8
[2024-03-08] MEDS: chlordiazePOXIDE HCL 25 MG CAPSULE PO PRN (19:54)
[2024-03-09] MEDS ORDERED: chlordiazePOXIDE HCL 10 MG CAPSULE PO PRN
[2024-03-09 06:29] VITALS: BP 147/86; PULSE 60; RESP 17
[2024-03-09] MEDS: chlordiazePOXIDE HCL 10 MG CAPSULE PO SCH (06:37)
[2024-03-10] MEDS ORDERED: chlordiazePOXIDE HCL 10 MG CAPSULE PO SCH (05:00)
[2024-03-11] MEDS ORDERED: chlordiazePOXIDE HCL 10 MG CAPSULE PO ONE (05:00)
== END 2024-03-09 08:40 | disposition home or self-care (01) | DRG 774 ==
LOC: YASAS 13:29 → Y3N 16:26
PROVIDERS: ADMIT Allergy & Immunology; ATTEND Surgery
PROC: HZ2ZZZZ Detoxification Services for Substance Abuse Treatment (ICD-10-PCS; principal; 2024-03-06)
DX: F10.230 Alcohol dependence with withdrawal, uncomplicated (principal); F14.10 Cocaine abuse, uncomplicated; F17.210 Nicotine dependence, cigarettes, uncomplicated; F10.282 Alcohol dependence with alcohol-induced sleep disorder; F41.9 Anxiety disorder, unspecified; F32.A Depression, unspecified; B20 Human immunodeficiency virus [HIV] disease; E78.2 Mixed hyperlipidemia; I10 Essential (primary) hypertension; L50.8 Other urticaria
CPT/HCPCS: 36415; 80053; 80305; 80307; 85027; 86593; 86780; 93005; 93010

== ENCOUNTER 2024-04-04 12:55 | Inpatient (IN) | payer OTHER ==
[2024-04-04 13:25] VITALS: BMI 29.0
[2024-04-04] MEDS ORDERED: amLODIPine BESYLATE 5 MG TABLET (FP) ONE (13:59)
[2024-04-04] MEDS: amLODIPine BESYLATE 10 MG TABLET (FP) PO ONE (14:01)
[2024-04-04] MEDS ORDERED: POLYETHYLENE GLYCOL (HEALTHYLAX) 3350 17 GM PACKET PO PRN (14:17)
[2024-04-04] MEDS ORDERED: IBUPROFEN 400 MG TABLET (FP) PO PRN (14:17)
[2024-04-04] MEDS ORDERED: ACETAMINOPHEN 325 MG TABLET (FP) PO PRN (14:17)
[2024-04-04] MEDS ORDERED: LOPERAMIDE HCL 2 MG CAPSULE PO PRN (14:17)
[2024-04-04] MEDS ORDERED: DICYCLOMINE HCL 10 MG CAPSULE PO PRN (14:17)
[2024-04-04] MEDS ORDERED: ONDANSETRON *ODT* 4 MG TABLET SL PRN (14:17)
[2024-04-04] MEDS ORDERED: MAG HYDROX/AL HYDROX/SIMETH 30 ML UNIT-DOSE CUP PO PRN (14:17)
[2024-04-04] MEDS ORDERED: IBUPROFEN 600 MG TABLET (FP) PO PRN (14:17)
[2024-04-04] MEDS ORDERED: NALOXONE (NARCAN) HCL 4 MG/0.1 ML SPRAY NS PRN (14:17)
[2024-04-04] MEDS ORDERED: MAGNESIUM HYDROX 2400MG/30ML ORAL SUSPENSION 30 ML CUP PO PRN (14:17)
[2024-04-04] MEDS ORDERED: BISMUTH SUBSALICYLATE 262 MG/15 ML BTL PO PRN (14:17)
[2024-04-04] MEDS: chlordiazePOXIDE HCL 25 MG CAPSULE PO PRN (17:21)
[2024-04-04] MEDS: THIAMINE 100 MG TABLET PO SCH (22:13)
[2024-04-04] MEDS: traZODone HCL 50 MG TABLET (FP) PO SCH (22:13)
[2024-04-04] MEDS: MELATONIN 5 MG TABLETS PO SCH (22:13)
[2024-04-04] MEDS: guaiFENesin 600 MG TABLET.ER (FP) PO PRN (22:14)
[2024-04-04] MEDS: chlordiazePOXIDE HCL 25 MG CAPSULE PO SCH (22:15)
[2024-04-05] MEDS: BENZONATATE 200 MG CAPSULE PO PRN (01:43)
[2024-04-05] MEDS: BENZOCAINE/MENTHOL (CHLORASEPTIC ) LOZENGE MM PRN (01:44)
[2024-04-05] MEDS: amLODIPine BESYLATE 10 MG TABLET (FP) PO SCH (10:36)
[2024-04-05] MEDS: PRENATAL VITAMINS W/ FOLIC ACID TABLET (FP) PO SCH (10:37)
[2024-04-05 11:17] LABS: POTASSIUM 4.6 mmol/L (3.5-5.1)
[2024-04-05 11:21] LABS: HEMATOCRIT 38.2 % (35.4-49); MCHC 31.3 g/dl (32.0-35.9); MEAN CELL VOLUME 83.3 fl (80-96); MEAN PLT VOLUME 8.2 fl (7.5-11.1); PLATELET COUNT 169 10^3/uL (134-434); RBC 4.59 M/mm3 (4.00-5.60); RDW 14.2 % (11.9-15.9); WHITE BLOOD COUNT 4.6 K/mm3 (4.0-10.0)
[2024-04-05 11:22] LABS: ALBUMIN 3.6 g/dl (3.4-5.0); BLOOD UREA NITROGEN 17.2 mg/dL (7-18); CALCIUM 9.1 mg/dL (8.5-10.1)
[2024-04-05 11:26] LABS: CREATININE 1.3 mg/dL (0.55-1.3)
[2024-04-05 11:27] LABS: BILIRUBIN,TOTAL 0.3 mg/dL (0.2-1)
[2024-04-05 11:42] LABS: CHOLESTEROL 128 mg/dL (50-200)
[2024-04-05 11:43] LABS: LDL CHOLESTEROL (ONLY SJRH) 70 mg/dL (5-100)
[2024-04-05 11:45] LABS: HDL CHOLESTEROL 48 mg/dL (40-60)
[2024-04-05] MEDS ORDERED: FLU VACCINE (FLULAVAL) PF 45 MCG/0.5 ML SYRINGE 2024-2025 IM ONE (12:00)
[2024-04-05] MEDS ORDERED: TETRAHYDROZOLINE HCL EYE DROPS OU PRN (12:01)
[2024-04-05] MEDS: NALTREXONE HCL 50 MG TABLET PO ONE (12:24)
[2024-04-05] MEDS: FLU VACCINE (FLULAVAL) PF 45 MCG/0.5 ML SYRINGE 2024-2025 IM ONE (12:25)
[2024-04-05] MEDS: ARTIFICIAL TEARS OPHTHALMIC DROPS OU PRN (17:28)
[2024-04-06] MEDS: chlordiazePOXIDE HCL 25 MG CAPSULE PO SCH (05:46)
[2024-04-06] MEDS: BICTEGRAV/EMTRICIT/TENOFOV (BIKTARVY) 50-200-25 MG TABLET PO SCH (07:14)
[2024-04-06] MEDS: NALTREXONE HCL 50 MG TABLET PO SCH (10:08)
[2024-04-06] MEDS: hydrOXYzine PAMOATE 25 MG CAPSULE (FP) PO PRN (16:59)
[2024-04-06] MEDS: METHOCARBAMOL 500 MG TABLET PO PRN (17:00)
[2024-04-06 18:28] LABS: HIV INTERPRETATION PRESUMPTIVE POSITIVE (NEGATIVE)
[2024-04-07] MEDS: chlordiazePOXIDE HCL 10 MG CAPSULE PO SCH (06:00)
[2024-04-07] MEDS: guaiFENesin 600 MG TABLET.ER (FP) PO SCH (09:06)
[2024-04-07] MEDS: chlordiazePOXIDE HCL 10 MG CAPSULE PO PRN (15:34)
[2024-04-08] MEDS: chlordiazePOXIDE HCL 10 MG CAPSULE PO SCH (05:33)
[2024-04-08] MEDS: cloNIDine HCL 0.1 MG TABLET PO ONE (21:49)
[2024-04-09] MEDS: chlordiazePOXIDE HCL 10 MG CAPSULE PO ONE (05:41)
[2024-04-09] MEDS: NALOXONE (NYS OPIOID OVERDOSE PROGRAM) 4 MG/0.1 ML SPRAY NS SCH (09:10)
[2024-04-10 13:25] VITALS: BP 126/76; PULSE 75; RESP 17; TEMP 98
== END 2024-04-09 09:50 | disposition home or self-care (01) | DRG 774 ==
LOC: YASAS 12:55 → Y3N 15:06
PROVIDERS: ADMIT Allergy & Immunology; ATTEND Surgery
PROC: HZ2ZZZZ Detoxification Services for Substance Abuse Treatment (ICD-10-PCS; principal; 2024-04-04)
DX: F10.230 Alcohol dependence with withdrawal, uncomplicated (principal); F14.20 Cocaine dependence, uncomplicated; F32.3 Major depressive disorder, single episode, severe with psychotic features; F10.282 Alcohol dependence with alcohol-induced sleep disorder; F19.24 Other psychoactive substance dependence with psychoactive substance-induced mood disorder; Z21 Asymptomatic human immunodeficiency virus [HIV] infection status; E78.5 Hyperlipidemia, unspecified; R79.89 Other specified abnormal findings of blood chemistry; Z87.891 Personal history of nicotine dependence; Z79.899 Other long term (current) drug therapy
CPT/HCPCS: 36415; 80053; 80061; 80305; 80307; 85027; 86359; 86360; 86593; 86780; 87389; 90656; 93005; 93010; G0008

== ENCOUNTER 2024-04-29 15:41 | Inpatient (IN) | payer OTHER ==
[2024-04-29] MEDS ORDERED: MAGNESIUM HYDROX 2400MG/30ML ORAL SUSPENSION 30 ML CUP PO PRN (16:34)
[2024-04-29] MEDS ORDERED: ONDANSETRON *ODT* 4 MG TABLET SL PRN (16:34)
[2024-04-29] MEDS ORDERED: MAG HYDROX/AL HYDROX/SIMETH 30 ML UNIT-DOSE CUP PO PRN (16:34)
[2024-04-29] MEDS ORDERED: POLYETHYLENE GLYCOL (HEALTHYLAX) 3350 17 GM PACKET PO PRN (16:34)
[2024-04-29] MEDS ORDERED: guaiFENesin 600 MG TABLET.ER (FP) PO PRN (16:34)
[2024-04-29] MEDS ORDERED: BISMUTH SUBSALICYLATE 524 MG/30 ML PO PRN (16:34)
[2024-04-29] MEDS ORDERED: LOPERAMIDE HCL 2 MG CAPSULE PO PRN (16:34)
[2024-04-29] MEDS ORDERED: IBUPROFEN 600 MG TABLET (FP) PO PRN (16:34)
[2024-04-29] MEDS ORDERED: DICYCLOMINE HCL 10 MG CAPSULE PO PRN (16:34)
[2024-04-29] MEDS ORDERED: NALOXONE (NARCAN) HCL 4 MG/0.1 ML SPRAY NS PRN (16:34)
[2024-04-29] MEDS ORDERED: IBUPROFEN 400 MG TABLET (FP) PO PRN (16:34)
[2024-04-29] MEDS ORDERED: BENZONATATE 200 MG CAPSULE PO PRN (16:34)
[2024-04-29 17:14] VITALS: BMI 31.8
[2024-04-29] MEDS: METHOCARBAMOL 500 MG TABLET PO PRN (18:48)
[2024-04-29] MEDS: BICTEGRAV/EMTRICIT/TENOFOV (BIKTARVY) 50-200-25 MG TABLET PO SCH ×2 (18:48→18:58)
[2024-04-29] MEDS: NALTREXONE HCL 50 MG TABLET PO SCH (18:48)
[2024-04-29] MEDS: chlordiazePOXIDE HCL 25 MG CAPSULE PO PRN (18:50)
[2024-04-29] MEDS: amLODIPine BESYLATE 10 MG TABLET (FP) PO SCH (19:00)
[2024-04-29] MEDS: chlordiazePOXIDE HCL 25 MG CAPSULE PO SCH (22:37)
[2024-04-29] MEDS: hydrOXYzine PAMOATE 25 MG CAPSULE (FP) PO PRN (22:37)
[2024-04-29] MEDS: THIAMINE 100 MG TABLET PO SCH (22:37)
[2024-04-29] MEDS: MELATONIN 5 MG TABLETS PO SCH (22:37)
[2024-04-30] MEDS ORDERED: amLODIPine BESYLATE 10 MG TABLET (FP) PO SCH (10:00)
[2024-04-30] MEDS: PRENATAL VITAMINS W/ FOLIC ACID TABLET (FP) PO SCH (10:13)
[2024-04-30 11:29] LABS: HEMATOCRIT 35.8 % (35.4-49); HEMOGLOBIN 11.7 GM/dL (11.7-16.9); MCHC 32.6 g/dl (32.0-35.9); MEAN CELL VOLUME 79.9 fl (80-96); MEAN PLT VOLUME 7.1 fl (7.5-11.1); PLATELET COUNT 192 10^3/uL (134-434); RBC 4.48 M/mm3 (4.00-5.60); RDW 14.5 % (11.9-15.9); WHITE BLOOD COUNT 4.3 K/mm3 (4.0-10.0)
[2024-04-30 11:55] LABS: CHLORIDE 106 mmol/L (98-107); POTASSIUM 4.1 mmol/L (3.5-5.1); SODIUM 138 mmol/L (136-145)
[2024-04-30 11:58] LABS: ALBUMIN 3.5 g/dl (3.4-5.0); ANION GAP 5 mmol/L (4-13); BLOOD UREA NITROGEN 14.3 mg/dL (7-18); CALCIUM 8.7 mg/dL (8.5-10.1); CO2 27 mmol/L (21-32); GLUCOSE,RANDOM 109 mg/dL (74-106)
[2024-04-30 12:01] LABS: CREATININE 1.1 mg/dL (0.55-1.3); SGOT/AST 27 U/L (15-37)
[2024-04-30 12:03] LABS: BILIRUBIN,TOTAL 0.3 mg/dL (0.2-1); TOT PROT 6.7 g/dl (6.4-8.2)
[2024-04-30 12:04] LABS: ALK PHOS 131 U/L (45-117)
[2024-04-30 12:05] LABS: SGPT/ALT 28 U/L (13-61)
[2024-04-30] MEDS: amLODIPine BESYLATE 10 MG TABLET (FP) PO SCH (17:00)
[2024-04-30] MEDS: ACETAMINOPHEN 325 MG TABLET (FP) PO PRN (17:24)
[2024-04-30] MEDS: traZODone HCL 50 MG TABLET (FP) PO SCH (22:24)
[2024-05-01] MEDS: chlordiazePOXIDE HCL 25 MG CAPSULE PO SCH (04:00)
[2024-05-01] MEDS ORDERED: ALBUTEROL SO4 2.5/IPRATROPIUM 0.5 INH SOL 3 ML VIAL.NEB. NEB ONE (10:36)
[2024-05-02] MEDS ORDERED: chlordiazePOXIDE HCL 10 MG CAPSULE PO PRN
[2024-05-02] MEDS: chlordiazePOXIDE HCL 10 MG CAPSULE PO SCH (05:40)
[2024-05-02] MEDS: ALBUTEROL SO4 HFA INHALER IH PRN (08:50)
[2024-05-02] MEDS: BENZOCAINE/MENTHOL (CHLORASEPTIC ) LOZENGE MM PRN (17:43)
[2024-05-02] MEDS: traZODone HCL 100 MG TABLET (FP) PO SCH (21:20)
[2024-05-03] MEDS: chlordiazePOXIDE HCL 10 MG CAPSULE PO SCH (05:27)
[2024-05-04] MEDS: chlordiazePOXIDE HCL 10 MG CAPSULE PO ONE (06:10)
[2024-05-04 08:57] VITALS: BP 128/71; PULSE 82; RESP 16; TEMP 97.7
[2024-05-04] MEDS: NALOXONE (NYS OPIOID OVERDOSE PROGRAM) 4 MG/0.1 ML SPRAY NS SCH (11:16)
== END 2024-05-04 10:35 | disposition home or self-care (01) | DRG 773 ==
LOC: YASAS 15:41 → Y3N 18:04
PROVIDERS: ADMIT Allergy & Immunology; ATTEND Surgery
PROC: HZ2ZZZZ Detoxification Services for Substance Abuse Treatment (ICD-10-PCS; principal; 2024-04-29)
DX: F10.230 Alcohol dependence with withdrawal, uncomplicated (principal); F11.20 Opioid dependence, uncomplicated; F14.20 Cocaine dependence, uncomplicated; F17.210 Nicotine dependence, cigarettes, uncomplicated; Z21 Asymptomatic human immunodeficiency virus [HIV] infection status; E78.5 Hyperlipidemia, unspecified; I10 Essential (primary) hypertension; J45.30 Mild persistent asthma, uncomplicated; R76.8 Other specified abnormal immunological findings in serum; Z79.899 Other long term (current) drug therapy
CPT/HCPCS: 36415; 80053; 80307; 85027; 86593; 86780

== ENCOUNTER 2024-07-04 11:59 | Inpatient (IN) | payer OTHER ==
[2024-07-04 13:02] VITALS: BMI 27.4
[2024-07-04] MEDS ORDERED: LOPERAMIDE HCL 2 MG CAPSULE PO PRN (14:06)
[2024-07-04] MEDS ORDERED: BISMUTH SUBSALICYLATE 262 MG/15 ML BTL PO PRN (14:06)
[2024-07-04] MEDS ORDERED: MAGNESIUM HYDROX 2400MG/30ML ORAL SUSPENSION 30 ML CUP PO PRN (14:06)
[2024-07-04] MEDS ORDERED: IBUPROFEN 400 MG TABLET (FP) PO PRN (14:06)
[2024-07-04] MEDS ORDERED: guaiFENesin 600 MG TABLET.ER (FP) PO PRN (14:06)
[2024-07-04] MEDS ORDERED: POLYETHYLENE GLYCOL (HEALTHYLAX) 3350 17 GM PACKET PO PRN (14:06)
[2024-07-04] MEDS ORDERED: MAG HYDROX/AL HYDROX/SIMETH 30 ML UNIT-DOSE CUP PO PRN (14:06)
[2024-07-04] MEDS ORDERED: DICYCLOMINE HCL 10 MG CAPSULE PO PRN (14:06)
[2024-07-04] MEDS ORDERED: ONDANSETRON *ODT* 4 MG TABLET SL PRN (14:06)
[2024-07-04] MEDS ORDERED: ACETAMINOPHEN 325 MG TABLET (FP) PO PRN (14:06)
[2024-07-04] MEDS ORDERED: BENZOCAINE/MENTHOL (CHLORASEPTIC ) LOZENGE MM PRN (14:06)
[2024-07-04] MEDS ORDERED: NALOXONE (NARCAN) HCL 4 MG/0.1 ML SPRAY NS PRN (14:06)
[2024-07-04] MEDS ORDERED: chlordiazePOXIDE HCL 25 MG CAPSULE PO PRN (14:06)
[2024-07-04] MEDS ORDERED: NICOTINE POLACRILEX 2 MG GUM BUC PRN (14:06)
[2024-07-04] MEDS: METHOCARBAMOL 500 MG TABLET PO PRN (15:32)
[2024-07-04] MEDS: hydrOXYzine PAMOATE 25 MG CAPSULE (FP) PO PRN (15:32)
[2024-07-04] MEDS: chlordiazePOXIDE HCL 25 MG CAPSULE PO SCH (16:08)
[2024-07-04] MEDS: THIAMINE 100 MG TABLET PO SCH (21:44)
[2024-07-04] MEDS: METOPROLOL TARTRATE 50 MG TABLET (FP) PO ONE (21:44)
[2024-07-04] MEDS: MELATONIN 5 MG TABLETS PO SCH (21:46)
[2024-07-05] MEDS: chlordiazePOXIDE HCL 25 MG CAPSULE PO SCH (06:21)
[2024-07-05] MEDS: PRENATAL VITAMINS W/ FOLIC ACID TABLET (FP) PO SCH (09:45)
[2024-07-05] MEDS: NICOTINE 14 MG/24 HOURS TOPICAL PATCH TD SCH (09:45)
[2024-07-05] MEDS ORDERED: ALBUTEROL SO4 HFA INHALER IH PRN (10:31)
[2024-07-05] MEDS: BICTEGRAV/EMTRICIT/TENOFOV (BIKTARVY) 50-200-25 MG TABLET PO SCH (11:05)
[2024-07-05] MEDS: LISINOPRIL 20 MG TABLET PO SCH (11:05)
[2024-07-05 11:33] LABS: POTASSIUM 4.4 mmol/L (3.5-5.1)
[2024-07-05 11:35] LABS: CALCIUM 9.3 mg/dL (8.5-10.1)
[2024-07-05 11:36] LABS: ALBUMIN 4.3 g/dl (3.4-5.0); BLOOD UREA NITROGEN 19.6 mg/dL (7-18)
[2024-07-05 11:37] LABS: HEMATOCRIT 38.6 % (35.4-49); MCH 24.8 pg (25.7-33.7); MCHC 31.2 g/dl (32.0-35.9); MEAN CELL VOLUME 79.5 fl (80-96); MEAN PLT VOLUME 7.3 fl (7.5-11.1); PLATELET COUNT 220 10^3/uL (134-434); RBC 4.85 M/mm3 (4.00-5.60); RDW 18.9 % (11.9-15.9); WHITE BLOOD COUNT 5.3 K/mm3 (4.0-10.0)
[2024-07-05 11:39] LABS: CREATININE 1.1 mg/dL (0.55-1.3)
[2024-07-05 11:40] LABS: BILIRUBIN,TOTAL 0.2 mg/dL (0.2-1)
[2024-07-05 11:41] LABS: TOT PROT 8.3 g/dl (6.4-8.2)
[2024-07-05] MEDS: ASPIRIN COATED 81 MG TABLET.EC PO SCH (19:06)
[2024-07-05] MEDS: amLODIPine BESYLATE 2.5 MG TABLET (FP) PO ONE (19:06)
[2024-07-05] MEDS: QUEtiapine FUMARATE 50 MG TABLET PO PRN (22:13)
[2024-07-05] MEDS: IBUPROFEN 600 MG TABLET (FP) PO PRN (22:16)
[2024-07-06] MEDS: chlordiazePOXIDE HCL 25 MG CAPSULE PO SCH (06:00)
[2024-07-06] MEDS: BENZONATATE 200 MG CAPSULE PO PRN (18:43)
[2024-07-07] MEDS ORDERED: chlordiazePOXIDE HCL 10 MG CAPSULE PO PRN
[2024-07-07] MEDS: chlordiazePOXIDE HCL 10 MG CAPSULE PO SCH (06:00)
[2024-07-08] MEDS: chlordiazePOXIDE HCL 10 MG CAPSULE PO SCH (05:42)
[2024-07-08] MEDS: NALTREXONE HCL 50 MG TABLET PO SCH (12:31)
[2024-07-08 20:35] VITALS: RESP 17
[2024-07-09] MEDS: chlordiazePOXIDE HCL 10 MG CAPSULE PO ONE (06:05)
[2024-07-09 06:38] VITALS: BP 146/90; PULSE 82; TEMP 97.6
== END 2024-07-09 08:45 | disposition home or self-care (01) | DRG 775 ==
LOC: YASAS 11:59 → Y6N 14:43
PROVIDERS: ADMIT Allergy & Immunology; ATTEND Allergy & Immunology
PROC: HZ2ZZZZ Detoxification Services for Substance Abuse Treatment (ICD-10-PCS; principal; 2024-07-04)
DX: F10.230 Alcohol dependence with withdrawal, uncomplicated (principal); F17.210 Nicotine dependence, cigarettes, uncomplicated; F32.A Depression, unspecified; Z21 Asymptomatic human immunodeficiency virus [HIV] infection status; E78.2 Mixed hyperlipidemia; I10 Essential (primary) hypertension; J45.30 Mild persistent asthma, uncomplicated; Z79.899 Other long term (current) drug therapy; Z59.00 Homelessness unspecified
CPT/HCPCS: 36415; 80053; 80305; 80307; 85027; 86593; 86780; 93005; 93010